=== PATIENT | male | born 1950 | race Caucasian/White ===

== ENCOUNTER 2018-12-08 11:44 | Outpatient (CLI) | payer MEDICARE ==
--- NOTE | 2018-12-08 12:19 | RAD ---
EXAM: XR Lumbar Spine Bending Min 4V PROVIDED CLINICAL HISTORY: Back pain COMPARISON: 04/02/2016 FINDINGS: 5 nonrib-bearing lumbar-type vertebral bodies are redemonstrated. Bilateral pedicle screws and vertic al interconnecting rods span L5-S1 with intervening intervertebral disc device. No evidence for hardware loosening or migration. Laminectomy changes are again seen at this level. Lumbar alignment a ppears normal. There is no evidence for abnormal translational motion with flexion and extension. Vertebral body heights appear preserved. Visualized pedicles appear intact. SI joints appear unremark able. Mild multilevel annular and facet degenerative changes are seen. Mild disc space narrowing at L4-5. IMPRESSION: Degenerative and postoperative change without apparent significant change with respect to prior.
--- NOTE | 2018-12-08 13:33 | MRI ---
EXAM: MRI Lumbar Spine WO Con PROVIDED CLINICAL HISTORY: Lumbar spondylosis COMPARISON: 04/25/2015 FINDINGS: 5 lumbar vertebral bodies are again seen. Lumbar alignment appears stable with grade 1 anterolisthesi s of L5 on S1 redemonstrated. Interval placement of bilateral pedicle screws and vertical interconnecting rods spanning L5-S1. Lumbar alignment appears otherwise normal. Vertebral body height s appear preserved. No focal concerning regional marrow signal abnormality is evident. The conus medullaris is normal in signal and terminates at an appropriate level. At L1-2, there is no significant central canal or foraminal narrowing apparent. At L2-3, there is no significant central canal or neural foraminal narrowing apparent. At L3-4, there is a broad-based disc bulge and bilateral facet arthritis. There is mild central canal stenosis. There is no significant foraminal narrowing apparent. At L4-5, there is a broad-based disc bulge and bilateral facet arthritis. Laminectomy changes are see n. No significant central canal stenosis apparent. Moderate bilateral foraminal narrowing. At L5-S1, there is a broad-based disc osteophyte complex and facet arthritis. Evaluation is somewhat limited due to susceptibility artifact from spinal instrumentation. Laminectomy changes are seen without significant central canal stenosis apparent. There is bilateral foraminal narrowing, at least moderate. IMPRESSION: Lower lumbar disc and facet degenerative changes producing primarily foraminal narrowing as described .
== END 2018-12-08 11:45 | disposition home or self-care (01) ==
LOC: BICMRI 11:44
PROVIDERS: ATTEND Nurse Practitioner Family
DX: M47.816 Spondylosis without myelopathy or radiculopathy, lumbar region (principal); M48.061 Spinal stenosis, lumbar region without neurogenic claudication; M51.36 Other intervertebral disc degeneration, lumbar region; Z98.890 Other specified postprocedural states
CPT/HCPCS: 72120; 72148

== ENCOUNTER 2023-05-25 17:41 | Emergency (ER) | payer MEDICARE ==
[2023-05-25 18:04] LABS: #Monocytes 0.7 thou/uL (0.11-0.59); %Basophils 0.2 % (0.0-1.0); %Eosinophils 0.2 % (0.0-10.0); %Lymphocytes 20.4 % (21.0-51.0); %Monocytes 5.4 % (0.0-10.0); %Neutrophils 73.5 % (42.0-75.0); Hematocrit 45.7 % (42.0-52.0); Hemoglobin 16.2 g/dL (14.0-18.0); Mean Corpuscular HGB CONC 35.4 g/dL (32.0-36.0); Mean Corpuscular Hemoglobin 31.7 pg (27.0-31.0); Mean Corpuscular Volume 89.4 fl (78.0-98.0); Mean Platelet Volume 9.2 fL (7.4-10.4); Platelet Count 259 10x3/uL (130-400); RBC Distribution Width 11.9 % (11.5-14.5); Red Blood Cell (RBC) Count 5.11 mill/uL (4.70-6.10); White Blood Cell (WBC) Count 12.3 10x3/uL (4.8-10.8)
[2023-05-25] MEDS ORDERED: Ketorolac Tromethamine 30 MG (1 mL) VIAL ONE (19:25)
[2023-05-25 19:28] LABS: ALT (SGPT) 17 U/L (8-55); AST (SGOT) 22 U/L (5-34); Albumin 4.5 g/dL (3.4-4.8); Alkaline Phosphatase 71 U/L (40-110); Anion Gap 17 mmol/L (10-20); BUN (Urea Nitrogen) 14 mg/dL (8.4-25.7); Bilirubin, Total 0.5 mg/dL (0.2-1.2); Calc. Creatinine Clearance 0 mL/min (70-130); Calcium 9.7 mg/dL (7.8-10.44); Carbon Dioxide 20 mmol/L (23-31); Chloride 103 mmol/L (98-107); Estimated GFR 82; Globulin 3.3 g/dL (2.4-3.5); Glucose 155 mg/dL (83-110); Lipase 31 U/L (8-78); Potassium 4.1 mmol/L (3.5-5.1); Protein, Total 7.8 g/dL (5.8-8.1); Sodium 136 mmol/L (136-145)
[2023-05-25 19:29] LABS: Troponin I 0.021 ng/mL (< 0.028)
== END 2023-05-25 20:16 | disposition home or self-care (01) ==
LOC: ERS 17:41
DX: M25.511 Pain in right shoulder (principal); R07.9 Chest pain, unspecified; I10 Essential (primary) hypertension; Z79.899 Other long term (current) drug therapy
CPT/HCPCS: 71045; 80053; 83690; 84484; 85025; 93005; 96374; J1885